=== PATIENT | male | born 1960 | race Caucasian/White ===

== ENCOUNTER → 2023-04-11 | Outpatient (CLI) | payer OTHER ==
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
--- NOTE | 2023-04-11 12:44 | DIREP ---
PROCEDURE:MRI SPINE LUMBAR W/O COMPARISON:None. INDICATIONS:CHRONIC LOW BACK PAIN TECHNIQUE:A comprehensive examination was performed utilizing a variety of imaging planes and imaging parameters to optimize visualization of suspected pathology. Images were performed without intravenous gadolinium contrast. FINDINGS: ALIGNMENT:Straightening of the lumbar lordosis. VERTEBRA:The vertebral body heights are maintained. Fairly pronounced Modic changes noted at L3-L4. No acute fracture or subluxation. CORD/CAUDA EQUINA:Normal size, contour, and signal intensity. The spinal cord ends at L1. PARASPINAL AREA:Normal with no visible mass. OTHER:None. LUMBAR DISC LEVELS T12-L1:Mild disc desiccation slight disc space loss. Small broad-based disc bulge. Mild bilateral facet arthropathy. No central canal or neural foraminal stenosis. L1-L2:Mild disc desiccation and disc space loss. Mild bilateral facet arthropathy. Mild broad-based disc bulge. No overt central canal or neural foraminal stenosis. L2-L3:Mild disc desiccation and disc space loss mild bilateral facet arthropathy. No central canal or neural foraminal stenosis. L3-L4:Severe disc space loss and desiccation broad-based disc bulge, moderate in size with a right paracentral disc protrusion, and mild central canal stenosis right lateral recess stenosis. [id number] right and mild left neural foraminal stenosis. L4-L5:Moderate disc space desiccation and disc space loss with a small broad-based disc bulge. Moderate bilateral facet arthropathy. No central canal stenosis mild bilateral neural foraminal stenosis. L5-S1:Moderate disc desiccation disc space loss with a broad-based disc bulge and central disc protrusion. Moderate bilateral facet arthropathy severe right and moderate to severe left neural foraminal stenosis. No overt central canal stenosis. CONCLUSION: Multilevel degenerative changes of the lumbar spine as detailed above with variable degrees of disc protrusions and disc space loss, central canal stenosis, and neural foraminal stenosis as above. Dictated by: Ej Birmingham MD. on 04/11/2023 at 12:19 PM
== END | disposition home or self-care (01) ==
LOC: RAD 10:24 → EDBD 10:24
PROVIDERS: ATTEND Nurse Practitioner Family
DX: M47.817 Spondylosis without myelopathy or radiculopathy, lumbosacral region (principal); M51.27 Other intervertebral disc displacement, lumbosacral region; M48.07 Spinal stenosis, lumbosacral region; I10 Essential (primary) hypertension; J84.10 Pulmonary fibrosis, unspecified
CPT/HCPCS: 71046; 72148